=== PATIENT | male | born 1995 | race Caucasian/White ===

== ENCOUNTER 2017-09-13 17:49 | Emergency (ER) | payer BC ==
[2017-09-13 18:09] VITALS: BP 137/86
--- NOTE | 2017-09-13 18:57 | ED ---
Abdominal Pain/Male - HPI Summary HPI Summary: 22 yr old male with RUQ pain, onset yesterday, has not gotten better, progressively worse, associated with nausea. Pain is moderate. No other complaints. - History of Current Complaint Chief Complaint: UCGI Stated Complaint: ABD PAIN Time Seen by Provider: 09/13/17 18:46 Pain Intensity: 6 - Allergies/Home Medications Allergies/Adverse Reactions: Allergies Allergy/AdvReac Type Severity Reaction Status Date / Time seasonal Allergy Congestion Uncoded 09/13/17 18:09 Home Medications: Home Medications Ibuprofen TAB* [Advil TAB*] 600 mg PO TID 09/13/17 [History Confirmed 09/13/17] Loratadine [Claritin 10 MG CAP] 10 mg PO BID 09/13/17 [History Confirmed ] PMH/Surg Hx/FS Hx/Imm Hx Endocrine/Hematology History: Denies: Hx Diabetes Respiratory History: Reports: Hx Asthma - exercise induced--"EXTREMELY RARE" - Surgical History Surgery Procedure, Year, and Place: Multiple Ear Tubes as a child Infectious Disease History: No Infectious Disease History: Denies: Hx Clostridium Difficile, Hx Hepatitis, Hx Human Immunodeficiency Virus (HIV), Hx of Known/Suspected MRSA, Hx Shingles, Hx Tuberculosis, Hx Known/ Suspected VRE, Hx Known/Suspected VRSA, History Other Infectious Disease, Traveled Outside the [place] in Last 30 Days - Family History Known Family History: Positive: None - negative fro respiratory issues in family Family History: no known cardio-vascular disorders in family - Social History Occupation: Employed Full-time Alcohol Use: Occasionally Substance Use Type: Reports: None Smoking Status (MU): Current Some Day Smoker Type: Cigars Amount Used/How Often: "rare" Review of Systems Constitutional: Negative Positive: Abdominal Pain, Nausea Positive: other - denies scrotal pain All Other Systems Reviewed And Are Negative: Yes Physical Exam Triage Information Reviewed: Yes Vital Signs On Initial Exam: Initial Vitals Temp Pulse Resp BP Pulse Ox 99 F 92 18 137/86 100 09/13/17 18:01 09/13/17 18:01 09/13/17 18:01 09/13/17 18:01 09/13/17 18:01 Vital Signs Reviewed: Yes Appearance: Positive: Well-Appearing, No Pain Distress Skin: Positive: Warm, Skin Color Reflects Adequate Perfusion Head/Face: Positive: Normal Head/Face Inspection Eyes: Positive: EOMI Neck: Positive: Supple Respiratory/Lung Sounds: Positive: Clear to Auscultation, Breath Sounds Present Cardiovascular: Positive: RRR. Negative: Murmur Abdomen Description: Positive: Other: - tender RUQ. Musculoskeletal: Positive: Strength/ROM Intact Neurological: Positive: Sensory/Motor Intact, Alert, Oriented to Person Place, Time, CN Intact II-III Psychiatric: Positive: Normal - [place] Coma Scale Best Eye Response: 4 - Spontaneous Best Motor Response: 6 - Obeys Commands Best Verbal Response: 5 - Oriented Coma Scale Total: 15 Diagnostics - Vital Signs Vital Signs Temp Pulse Resp BP Pulse Ox 09/13/17 18:01 99 F 92 18 137/86 100 - Laboratory Lab Statement: Any lab studies that have been ordered have been reviewed, and results considered in the medical decision making process. Abdominal Pain Fem Course/Dx - Course Course Of Treatment: 22 yr Male with RUQ abdominal pain. He signed out AMA. Refused transfer to ER. Risks discussed, and signed AMA form. - Diagnoses Provider Diagnoses: Abdominal pain, Right upper quadrant abdominal pain, Hypertension Discharge - Sign-Out/Discharge Documenting (check all that apply): Discharge - Discharge Plan Condition: Good Disposition: AGAINST MEDICAL ADVICE Referrals: No Primary Care Phys,NOPCP [Primary Care Provider] - - Billing Disposition and Condition Condition: GOOD Disposition: AMA
== END 2017-09-13 19:07 | disposition left against medical advice (07) ==
LOC: UCCORT 17:49
DX: R10.11 Right upper quadrant pain (principal); I10 Essential (primary) hypertension; F17.290 Nicotine dependence, other tobacco product, uncomplicated
CPT/HCPCS: 99212; G0463

== ENCOUNTER 2018-01-08 07:01 | Emergency (ER) | payer BC ==
--- NOTE | 2018-01-08 07:23 | ED ---
Skin Complaint - HPI Summary HPI Summary: 23 yr old male with over a week of groin, scrotal itching. Intially in the groin area and now on scrotum and on the penis as well. Very red, itchy. Has been using antifungal cream the past few days. - History of Current Complaint Chief Complaint: UCSkin Stated Complaint: SKIN COMPLAINT Pain Intensity: 0 - Allergy/Home Medications Allergies/Adverse Reactions: Allergies Allergy/AdvReac Type Severity Reaction Status Date / Time seasonal Allergy Congestion Uncoded 01/08/18 07:11 Home Medications: Home Medications Clotrimazole 1% CREAM* [Clotrimazole 1%*] 1 applic TOPICAL ONCE 01/08/18 [ History Confirmed 01/08/18] PMH/Surg Hx/FS Hx/Imm Hx Endocrine/Hematology History: Denies: Hx Diabetes Respiratory History: Reports: Hx Asthma - exercise induced--"EXTREMELY RARE" - Surgical History Surgery Procedure, Year, and Place: Multiple Ear Tubes as a child. appendectomy Infectious Disease History: No Infectious Disease History: Denies: Hx Clostridium Difficile, Hx Hepatitis, Hx Human Immunodeficiency Virus (HIV), Hx of Known/Suspected MRSA, Hx Shingles, Hx Tuberculosis, Hx Known/ Suspected VRE, Hx Known/Suspected VRSA, History Other Infectious Disease, Traveled Outside the [place] in Last 30 Days - Family History Known Family History: Positive: None - negative fro respiratory issues in family Family History: no known cardio-vascular disorders in family - Social History Lives: With Family Alcohol Use: Occasionally Substance Use Type: Reports: None Smoking Status (MU): Current Some Day Smoker Type: Cigars Amount Used/How Often: "rare" Review of Systems Positive: Rash All Other Systems Reviewed And Are Negative: Yes Physical Exam Triage Information Reviewed: Yes Vital Signs On Initial Exam: Initial Vitals Temp Pulse Resp BP Pulse Ox 98.2 F 99 15 148/113 99 01/08/18 07:08 01/08/18 07:08 01/08/18 07:08 01/08/18 07:08 01/08/18 07:08 Vital Signs Reviewed: Yes Appearance: Positive: Well-Appearing, No Pain Distress Skin: Positive: Warm, Skin Color Reflects Adequate Perfusion Head/Face: Positive: Normal Head/Face Inspection Eyes: Positive: EOMI ENT: Positive: Normal ENT inspection Neck: Positive: Nontender Respiratory/Lung Sounds: Positive: Clear to Auscultation, Breath Sounds Present Cardiovascular: Positive: RRR. Negative: Murmur Abdomen Description: Positive: Nontender Male Genital Exam: Positive: Erythema - to the scrotal and groin thigh crease areas. Also on the penis. Some lichen like quality to the redness over the glans. No vesicles. No drainage.. Negative: Inguinal Tenderness, Testicular Tenderness (R), Testicular Tenderness (L), Urethral Discharge Musculoskeletal: Positive: Strength/ROM Intact Neurological: Positive: Sensory/Motor Intact, Alert, Oriented to Person Place, Time, CN Intact II-III Psychiatric: Positive: Normal - [place] Coma Scale Best Eye Response: 4 - Spontaneous Best Motor Response: 6 - Obeys Commands Best Verbal Response: 5 - Oriented Coma Scale Total: 15 Diagnostics - Vital Signs Vital Signs Temp Pulse Resp BP Pulse Ox 01/08/18 07:08 98.2 F 99 15 148/113 99 - Laboratory Lab Statement: Any lab studies that have been ordered have been reviewed, and results considered in the medical decision making process. Course/Dx - Diagnoses Provider Diagnoses: Tinea cruris Discharge - Sign-Out/Discharge Documenting (check all that apply): Patient Departure - Discharge Plan Condition: Good Disposition: HOME Prescriptions: Fluconazole [Fluconazole 200 mg tab] 200 mg PO WEEKLY #2 tablet Patient Education Materials: Jock Itch (ED), Hypertension (ED) Referrals: No Primary Care Phys,NOPCP [Primary Care Provider] - [facility] [place] [facility] [Outside] - 3 Days Additional Instructions: waste picker miconazole 2 percent powder and use in addition to the cream you are using twice a day. - Billing Disposition and Condition Condition: GOOD Disposition: Home
[2018-01-08 07:31] VITALS: BP 133/80
== END 2018-01-08 07:30 | disposition home or self-care (01) ==
LOC: UCCORT 07:01
DX: B35.6 Tinea cruris (principal); F17.210 Nicotine dependence, cigarettes, uncomplicated
CPT/HCPCS: 99212; G0463